=== PATIENT | male | born 1955 | race Caucasian/White ===

== ENCOUNTER 2019-05-17 18:26 | Inpatient (IN) | payer MEDICARE, OTHER ==
[~2019-05-17] VITALS: Ht 180.3 cm; Wt 103.4 kg
[2019-05-17] MEDS ORDERED: NAMENDA 10MG TA10 MG PO (19:04)
[2019-05-17] MEDS ORDERED: VITAMIN D 50,1.25 MG PO (19:04)
[2019-05-17] MEDS ORDERED: ARICEPT23 MG PO (19:04)
[2019-05-17] MEDS ORDERED: TURMERIC500 MG PO (19:05)
[2019-05-17] MEDS ORDERED: LIPITOR20 MG PO (19:05)
[2019-05-17] MEDS ORDERED: PRINIVIL5 MG PO (19:05)
[2019-05-17] MEDS ORDERED: ASPIRIN 81M81 MG/TA2 PO (19:05)
[2019-05-17] MEDS ORDERED: B COMPLEX & B121 TAB (19:06)
[2019-05-17] MEDS ORDERED: MASON NATURAL1200 MG PO (19:06)
[2019-05-17 19:16] LABS: ALBUMIN 4.4 gm/dL (3.5-5.0); BILIRUBIN,TOTAL 0.7 mg/dL (0.0-1.0); CALCIUM 9.1 mg/dL (8.4-10.2); CREATININE, serum 0.81 (0.66-1.25); POTASSIUM 4.1 mmol/L (3.4-5.0); TOTAL PROTEIN 7.3 gm/dL (6.4-8.2)
[2019-05-17 19:37] LABS: MEAN CELL VOLUME 118 fl (80.0-100.0); MEAN CORPUSCULAR HGB CONC 34 g/dl (33.0-37.0); MEAN PLATELET VOLUME 10.5 fl (7.4-10.4); PLATELET COUNT 562 K/mm3 (130-400); RED BLOOD COUNT 1.36 M/mm3 (4.20-5.60); REDCELL DISTRIBUTION WIDTH-CV 16.3 % (11.5-14.5); RETIC # 0.01 M/mm3 (0.02-0.16); RETIC % 0.7 % (0.5-3.52)
[2019-05-17 19:40] LABS: HEMATOCRIT 16.1 % (42.0-52.0); HEMOGLOBIN 5.5 g/dl (13.5-18.0); MEAN CORPUSCULAR HEMOGLOBIN 40 pg (27.0-31.0)
[2019-05-17 20:40] LABS: BAND 1 % (0-10); EOSINOPHIL 1 % (0-4); LYMPHOCYTE 59 % (20.0-51.0); MYELOCYTE 1 % (0-0); NEUTROPHILS 34 % (42.0-75.2); PLATELET ESTIMATE INCREASED (NORMAL)
[2019-05-17 20:41] LABS: ANISOCYTOSIS 2+; HYPOCHROMIA 1+
[2019-05-17 20:43] LABS: ROULEAUX 1+
[2019-05-17 21:08] LABS: INR 1.2 (0.8-3.0); PROTHROMBIN TIME 13.5 SECONDS (9.7-12.8)
[2019-05-17 21:10] LABS: PARTIAL THROMBOPLASTIN TIME 32.6 SECONDS (26.0-37.0)
[2019-05-17 21:58] VITALS: BP 127/86; PULSE 88; TEMP 98
[2019-05-17] MEDS ORDERED: METHAVER 109 M1 EACH PO (22:33)
[2019-05-17 23:28] VITALS: BP 115/58; PULSE 82; TEMP 99.7
[2019-05-17 23:43] VITALS: BP 115/64; PULSE 95; TEMP 99.6
[2019-05-18] VITALS (23 sets, daily range): BP systolic 102–132; BP diastolic 5–74; PULSE 67–86; TEMP 97.7–99.2
[2019-05-18 07:03] LABS: MEAN CORPUSCULAR HGB CONC 38 g/dl (33.0-37.0); MEAN PLATELET VOLUME 10.1 fl (7.4-10.4); RED BLOOD COUNT 1.57 M/mm3 (4.20-5.60); REDCELL DISTRIBUTION WIDTH-CV 24.8 % (11.5-14.5)
[2019-05-18 07:14] LABS: HEMATOCRIT 17.2 % (42.0-52.0); HEMOGLOBIN 6.6 g/dl (13.5-18.0); MEAN CELL VOLUME 110 fl (80.0-100.0); MEAN CORPUSCULAR HEMOGLOBIN 42 pg (27.0-31.0); PLATELET COUNT 444 K/mm3 (130-400)
[2019-05-18 07:17] LABS: CALCIUM 8.4 mg/dL (8.4-10.2); CREATININE, serum 0.6 (0.66-1.25); POTASSIUM 3.7 mmol/L (3.4-5.0)
[2019-05-18 07:41] LABS: ANISOCYTOSIS 3+; BAND 2 % (0-10); LYMPHOCYTE 59 % (20.0-51.0); NEUTROPHILS 21 % (42.0-75.2); PLATELET ESTIMATE INCREASED (NORMAL)
[2019-05-18 07:42] LABS: POIKILOCYTOSIS 2+
[2019-05-18 07:46] LABS: TSH w REFLEX 2.01 uIU/mL (0.465-4.680)
[2019-05-18 08:23] LABS: PATHOLOGY DIFF REVIEW OK
[2019-05-18 10:27] LABS: IRON,SERUM 237 ug/dL (35-150)
[2019-05-18 11:02] LABS: FERRITIN 630 ng/mL (18-464)
[2019-05-18 15:48] LABS: TOTAL IRON BINDING CAPACITY 295 ug/dL (261-462)
[2019-05-18 16:44] LABS: FOLATE (FOLIC ACID) 4.3 ng/mL (7.0-31.4)
[2019-05-18 16:51] LABS: HEMOGLOBIN 7.2 g/dl (13.5-18.0)
[2019-05-19 04:22] VITALS: BP 125/58; PULSE 82; TEMP 97.1
[2019-05-19 06:58] LABS: CALCIUM 8.5 mg/dL (8.4-10.2); CREATININE, serum 0.6 (0.66-1.25); POTASSIUM 3.9 mmol/L (3.4-5.0)
[2019-05-19 07:21] LABS: BASO % 0.1 % (0.0-2.0); EOS # 0.1 (0.0-0.7); EOS % 1.2 % (0-4.0); GRAN # 2.7 (1.4-6.5); GRAN % 39.2 % (42.2-75.2); LYMPH # 3.4 (1.2-3.4); LYMPH % 49.5 % (20.0-51.0); MEAN CORPUSCULAR HGB CONC 35 g/dl (33.0-37.0); MEAN PLATELET VOLUME 10.2 fl (7.4-10.4); MONO # 0.7 (0.1-0.6); MONO % 9.7 % (1.7-9.3); PLATELET COUNT 474 K/mm3 (130-400); RED BLOOD COUNT 2.21 M/mm3 (4.20-5.60); REDCELL DISTRIBUTION WIDTH-CV 22.4 % (11.5-14.5)
[2019-05-19 08:05] LABS: HEMATOCRIT 22.5 % (42.0-52.0); HEMOGLOBIN 7.8 g/dl (13.5-18.0); MEAN CELL VOLUME 102 fl (80.0-100.0); MEAN CORPUSCULAR HEMOGLOBIN 35 pg (27.0-31.0)
[2019-05-19 08:11] VITALS: BP 104/43; PULSE 77; TEMP 98.2
[2019-05-19 11:10] VITALS: BP 115/63; PULSE 63; TEMP 98.9
[2019-05-19] MEDS ORDERED: FOLIC ACID 11 MG/TA1 PO (14:20)
== END 2019-05-19 16:49 | disposition hospice, home (50) | DRG 812 ==
LOC: COL.ER 18:26 → MEDICAL 20:18
PROVIDERS: Emergency Medicine; ADMIT Student in an Organized Health Care Education/Training Program
DX: D53.9 Nutritional anemia, unspecified (principal); C95.90 Leukemia, unspecified not having achieved remission; R44.3 Hallucinations, unspecified; I10 Essential (primary) hypertension; E66.9 Obesity, unspecified; Z68.38 Body mass index [BMI] 38.0-38.9, adult; K59.00 Constipation, unspecified; G31.83 Neurocognitive disorder with Lewy bodies; F02.80 Dementia in other diseases classified elsewhere, unspecified severity, without behavioral disturbance, psychotic disturbance, mood disturbance, and anxiety; D47.3 Essential (hemorrhagic) thrombocythemia
CPT/HCPCS: OP; 99239; C9113; P9040

== ENCOUNTER 2019-05-24 10:15 | Day surgery (SDC) | payer MEDICARE, OTHER ==
[~2019-05-24] VITALS: Ht 180.3 cm; Wt 118.8 kg
[~2019-05-24 10:15] MED LIST: ARICEPT23 MG PO; ASPIRIN 81M81 MG/TA2 PO; B COMPLEX & B121 TAB; FOLIC ACID 11 MG/TA1 PO; LIPITOR20 MG PO; MASON NATURAL1200 MG PO; METHAVER 109 M1 EACH PO; NAMENDA 10MG TA10 MG PO; PRINIVIL5 MG PO; TURMERIC500 MG PO; VITAMIN D 50,1.25 MG PO
[2019-05-24 10:49] VITALS: BP 113/74; PULSE 984; TEMP 98.1
[2019-05-24 10:51] LABS: MEAN CELL VOLUME 108 fl (80.0-100.0); MEAN CORPUSCULAR HGB CONC 37 g/dl (33.0-37.0); MEAN PLATELET VOLUME 10.2 fl (7.4-10.4); PLATELET COUNT 438 K/mm3 (130-400); RED BLOOD COUNT 2.06 M/mm3 (4.20-5.60); REDCELL DISTRIBUTION WIDTH-CV 21.3 % (11.5-14.5)
[2019-05-24 10:59] LABS: HEMATOCRIT 22.3 % (42.0-52.0); HEMOGLOBIN 8.2 g/dl (13.5-18.0); MEAN CORPUSCULAR HEMOGLOBIN 40 pg (27.0-31.0)
[2019-05-24] MEDS ORDERED: TYLENOL 325MG325 MG PO (11:06)
[2019-05-24] MEDS ORDERED: FOLIC ACID 11 MG/TA1 PO (11:06)
[2019-05-24] MEDS ORDERED: VITAMIN B-625 MG PO (11:08)
--- NOTE | 2019-05-24 11:10 | NUR ---
MEDICAL HX AND MEDICATION LIST COMPLETED BY
[2019-05-24 13:00] VITALS: BP 112/70; PULSE 79; TEMP 97.8
--- NOTE | 2019-05-24 13:00 | NUR ---
TO BAY 5 PER CART FROM ENDOSCOPY. BROUGHT RECLINER TO THE CART AND PATIENT TRANSFERED INTO RECLINER WITH 2 ASSIST. RECEIVED OJ AND MUOFELIAIN.
[2019-05-24 13:15] VITALS: BP 102/62; PULSE 52
--- NOTE | 2019-05-24 13:15 | NUR ---
ATE 100% AND TOLERATED WELL.
--- NOTE | 2019-05-24 13:30 | NUR ---
DR ROSE INTO TALK WITH PATIENT AND PATIENTS .
--- NOTE | 2019-05-24 13:45 | NUR ---
RECEIVED DISCHARGE INSTRUCTIONS AND VERBALIZED UNDERSTANDING SIGNED DISCHARGE INSTRUCTIONS. DRSSED PATIENT FOR DISCHARGE. TRANSFERED TO WITH AND MYSELF TO . ONCE IN , PATIENT GRIPPED THE ARM REST EXTREMELY TIGHT.
--- NOTE | 2019-05-24 14:00 | NUR ---
DISCHARGED PER WC BY NURSING STAFF TO PRIVATE CAR IN CARE OF - GELA.
== END 2019-05-24 14:08 | disposition home or self-care (01) ==
LOC: SDCO 10:15
PROVIDERS: Nurse Anesthetist, Certified Registered
DX: D12.3 Benign neoplasm of transverse colon (principal); K25.7 Chronic gastric ulcer without hemorrhage or perforation; D12.8 Benign neoplasm of rectum; D64.9 Anemia, unspecified; K29.30 Chronic superficial gastritis without bleeding; K63.9 Disease of intestine, unspecified; K57.30 Diverticulosis of large intestine without perforation or abscess without bleeding; Z79.82 Long term (current) use of aspirin; I10 Essential (primary) hypertension; G47.33 Obstructive sleep apnea (adult) (pediatric); M19.90 Unspecified osteoarthritis, unspecified site; R44.3 Hallucinations, unspecified; F03.90 Unspecified dementia, unspecified severity, without behavioral disturbance, psychotic disturbance, mood disturbance, and anxiety; E66.9 Obesity, unspecified; D47.3 Essential (hemorrhagic) thrombocythemia; E78.00 Pure hypercholesterolemia, unspecified; C91.90 Lymphoid leukemia, unspecified not having achieved remission; Z87.891 Personal history of nicotine dependence
CPT/HCPCS: OP; J2704; J7030

== ENCOUNTER → 2019-06-01 | Outpatient (CLI) | payer MEDICARE, OTHER ==
[~2019-06-01] MED LIST changes: +TYLENOL 325MG325 MG PO; +VITAMIN B-625 MG PO
[2019-06-01 12:33] LABS: MEAN CELL VOLUME 110 fl (80.0-100.0); MEAN CORPUSCULAR HGB CONC 36 g/dl (33.0-37.0); MEAN PLATELET VOLUME 10.4 fl (7.4-10.4); PLATELET COUNT 451 K/mm3 (130-400); RED BLOOD COUNT 1.87 M/mm3 (4.20-5.60); REDCELL DISTRIBUTION WIDTH-CV 20.6 % (11.5-14.5)
[2019-06-01 12:40] LABS: HEMATOCRIT 20.5 % (42.0-52.0); HEMOGLOBIN 7.4 g/dl (13.5-18.0); MEAN CORPUSCULAR HEMOGLOBIN 40 pg (27.0-31.0)
== END ==
LOC: COL.LAB 12:05
PROVIDERS: Physician Assistant
DX: C91.Z0 Other lymphoid leukemia not having achieved remission (principal); D64.9 Anemia, unspecified

== ENCOUNTER → 2019-09-09 | Outpatient (CLI) | payer MEDICARE, OTHER | LOC: COL.RAD 10:38 | DX: C91.Z0 Other lymphoid leukemia not having achieved remission (principal); M51.46 Schmorl's nodes, lumbar region; M43.8X6 Other specified deforming dorsopathies, lumbar region ==